=== PATIENT | female | born 1930 | race Caucasian/White ===

== ENCOUNTER 2018-08-03 06:52 | Day surgery (SDC) | payer MEDICARE, BC ==
[2018-08-02 10:11] LABS: BASOPHILS # (AUTO) 0.1 X10'3 (0-0.2); BASOPHILS % (AUTO) 0.6 % (0-1); EOSINOPHILS # (AUTO) 0.2 X10'3 (0-0.9); EOSINOPHILS % (AUTO) 2.7 % (0-6); HEMATOCRIT 34.9 % (35.0-45.0); HEMOGLOBIN 11.7 g/dl (12.0-16.0); LYMPHOCYTES # (AUTO) 2.1 X10'3 (1.1-4.8); LYMPHOCYTES % (AUTO) 25.5 % (21-51); MEAN CORPUSCULAR HEMOGLOBIN 30.2 PG (27.0-31.0); MEAN CORPUSCULAR HGB CONC 33.4 g/dL (33.0-36.5); MEAN CORPUSCULAR VOLUME 90.6 FL (78-98); MEAN PLATELET VOLUME 6.9 FL (7.4-10.4); MONOCYTES # (AUTO) 0.7 X10'3 (0-0.9); MONOCYTES % (AUTO) 8.2 % (2-12); NEUTROPHILS # (AUTO) 5.3 X10'3 (1.8-7.7); PLATELET COUNT 362 X10'3 (140-440); RED BLOOD COUNT 3.85 X10'6 (4.20-5.60); WHITE BLOOD COUNT 8.4 X10'3 (4.5-11.0)
[2018-08-02 10:20] LABS: ALBUMIN 3.4 G/DL (3.4-5.0); ANION GAP 7 (8-16); BLOOD UREA NITROGEN 14 MG/DL (7-18); BUN/CREATININE RATIO 18.9 (6.6-38.0); CALCIUM 9.2 MG/DL (8.5-10.1); CHLORIDE 100 MMOL/L (99-107); CREATININE 0.74 MG/DL (0.40-0.90); GLUCOSE 102 MG/DL (70-104); SODIUM 133 MMOL/L (135-145); eGFR 74 ML/MIN
[2018-08-02 10:25] LABS: PARTIAL THROMBOPLASTIN TIME 27 SECONDS (22-32)
[~2018-08-03] VITALS: Ht 147.3 cm; Wt 74.7 kg
[2018-08-03] VITALS (13 sets, daily range): BP systolic 114–186; BP diastolic 50–89
[2018-08-03] MEDS ORDERED: LORazepam 0.5 MG tablet PO PRN (07:10)
[2018-08-03] MEDS ORDERED: normal saline 1,000 ML IV SCH ×2 (07:10→11:50)
[2018-08-03] MEDS ORDERED: diphenhydrAMINE 25mg capsule PO PRN (07:10)
[2018-08-03] MEDS ORDERED: CALC1TAB PO (07:31)
[2018-08-03] MEDS ORDERED: MULT-1141 PO (07:31)
[2018-08-03] MEDS ORDERED: ACET-2971 PEG (07:31)
[2018-08-03] MEDS ORDERED: LISI-604 PO (07:31)
[2018-08-03] MEDS ORDERED: METO100T7 PO (07:31)
[2018-08-03] MEDS ORDERED: ASPI-1071 PO (07:31)
[2018-08-03] MEDS ORDERED: OMEP20CA10 PO (07:31)
[2018-08-03] MEDS ORDERED: ATOR10TA87 PO (07:31)
[2018-08-03] MEDS ORDERED: iohexol 350MG/ML 100ml bottle IV ONE (09:18)
[2018-08-03] MEDS ORDERED: LIDOcaine 1% (10mg/ml)w/preservative injection 20ml MDV ONE (09:18)
[2018-08-03] MEDS ORDERED: iohexol 350 MG/ML 50ML vial IV ONE (09:18)
[2018-08-03] MEDS ORDERED: nitroGLYCERIN-Tridil 50MG/D5W 250 ML IV ONE (09:18)
[2018-08-03] MEDS ORDERED: heparin 1,000unit/ml 10ml vial 10 ML ONE (09:18)
[2018-08-03] MEDS ORDERED: midazolam 2 mg/2 ml injection ONE (09:53)
[2018-08-03] MEDS ORDERED: fentaNYL/PF 50MCG/1 ML 2ML syringe ONE (09:53)
[2018-08-03 15:21] LABS: ISTAT HGB ART 10.9 g/dl (12.0-16.0); ISTAT Hct ART 32 %PCV (35-48); ISTAT O2 SATURATION ARTERIAL 99 % (95-98); ISTAT SOURCE ART
[2018-08-03 15:21] LABS: ISTAT Hct MIX 33 %PCV (35-48); ISTAT O2 SATURATION MIX VENOUS 71 % (60-80); ISTAT SOURCE MIX
== END 2018-08-03 18:00 | disposition home or self-care (01) ==
LOC: SSTAY O 06:52
PROVIDERS: ATTEND Internal Medicine Cardiovascular Disease
DX: I25.10 Atherosclerotic heart disease of native coronary artery without angina pectoris (principal); E78.5 Hyperlipidemia, unspecified; I10 Essential (primary) hypertension; E11.9 Type 2 diabetes mellitus without complications; E66.9 Obesity, unspecified; K21.9 Gastro-esophageal reflux disease without esophagitis; F41.9 Anxiety disorder, unspecified; Z90.710 Acquired absence of both cervix and uterus; Z98.890 Other specified postprocedural states; Z90.49 Acquired absence of other specified parts of digestive tract; Z96.651 Presence of right artificial knee joint; Z68.31 Body mass index [BMI] 31.0-31.9, adult; Z86.718 Personal history of other venous thrombosis and embolism; Z88.0 Allergy status to penicillin; Z79.899 Other long term (current) drug therapy
CPT/HCPCS: 36415; 80048; 82803; 82948; 85014; 85025; 85610; 85730; 93005; 93460; 99152; 99153; A6257; J1644; J2001; J2250; J3010; J7030; Q0163; Q9967; A4620; C1769; J3490